=== PATIENT | male | born 1950 | race Caucasian/White ===

== ENCOUNTER 2020-12-08 20:47 | Emergency (ER) | payer OTHER ==
[~2020-12-08] VITALS: Ht 175.3 cm; Wt 72.6 kg
[~2020-12-08 20:47] MED LIST: NOHOMEMEDICATIONS
[2020-12-08] MEDS ORDERED: ULTRAM 50MG TAB50 MG PO (22:15)
[2020-12-08 23:06] VITALS: BP 159/100
== END 2020-12-08 23:06 | disposition home or self-care (01) ==
LOC: ER 20:47
DX: S09.90XA Unspecified injury of head, initial encounter (principal); R07.81 Pleurodynia; M25.512 Pain in left shoulder; W19.XXXA Unspecified fall, initial encounter; Y93.89 Activity, other specified; Y92.89 Other specified places as the place of occurrence of the external cause; Y99.8 Other external cause status